=== PATIENT | female | born 1985 | race Caucasian/White ===

== ENCOUNTER → 2016-11-21 | Outpatient (CLI) | payer OTHER | LOC: US 09:54 | DX: N63 Unspecified lump in breast (principal); Z80.3 Family history of malignant neoplasm of breast | CPT/HCPCS: 76641-LT ==

== ENCOUNTER → 2016-12-13 | Outpatient (CLI) | payer OTHER | LOC: US 12-01 12:30 | DX: N63 Unspecified lump in breast (principal); Z80.3 Family history of malignant neoplasm of breast | CPT/HCPCS: 76641-RT ==